=== PATIENT | female | born 1965 | race African-American/Black ===

== ENCOUNTER → 2017-06-28 | Outpatient (CLI) | payer OTHER | END | disposition home or self-care (01) | LOC: CFH 12:54 | PROVIDERS: ATTEND Family Medicine | DX: R06.02 Shortness of breath (principal); I10 Essential (primary) hypertension | CPT/HCPCS: 71046 ==

== ENCOUNTER → 2017-09-13 | Outpatient (CLI) | payer OTHER ==
[~2017-09-13] MED LIST: AMLO5TAB2 PO; LISI-170 PO
[2017-09-13 12:33] LABS: CREATININE 0.88 mg/dL (0.55-1.02)
== END | disposition home or self-care (01) ==
LOC: RAD 11:46
PROVIDERS: ATTEND Internal Medicine Cardiovascular Disease
DX: J84.10 Pulmonary fibrosis, unspecified (principal); I51.7 Cardiomegaly; J84.9 Interstitial pulmonary disease, unspecified; I70.0 Atherosclerosis of aorta
CPT/HCPCS: 36415; 71275; 82565

== ENCOUNTER 2018-04-13 00:41 | Emergency (ER) | payer OTHER ==
[~2018-04-13] VITALS: Ht 160 cm; Wt 64.5 kg
[~2018-04-13 00:41] MED LIST changes: -AMLO5TAB2 PO; +AMLO5TAB7 PO
[2018-04-13 01:48] LABS: BASOPHILS # (AUTO) 0.07 x10^3/uL (0-0.1); BASOPHILS % (AUTO) 1 % (0-1); EOSINOPHILS # (AUTO) 0.24 x10^3/uL (0-0.4); EOSINOPHILS % (AUTO) 4 % (1-7); LYMPHOCYTES # (AUTO) 2.85 x10^3/uL (1-3.4); LYMPHOCYTES % (AUTO) 52 % (22-44); MD NO; MEAN CORPUSCULAR HEMOGLOBIN 32.1 pg (27.0-34.8); MEAN CORPUSCULAR HGB CONC 33.9 g/dL (32.4-35.8); MEAN CORPUSCULAR VOLUME 94.6 fL (80-100); MEAN PLATELET VOLUME 8.9 fL (7.4-10.4); MONOCYTES # (AUTO) 0.55 x10^3/uL (0.2-0.8); MONOCYTES % (AUTO) 10 % (2-9); NEUTROPHILS # (AUTO) 1.82 x10^3/uL (1.8-6.8); NEUTROPHILS % (AUTO) 33 % (42-75); PLATELET COUNT 204 x10^3/uL (130-400); RED BLOOD COUNT 4.56 x10^6/uL (3.82-5.3); RED CELL DISTRIBUTION WIDTH 13.1 % (9.6-15.2)
[2018-04-13] MEDS ORDERED: ASPIRIN 81 MG TABLET CHEW ONE (01:50)
[2018-04-13] MEDS ORDERED: ACETAMINOPHEN 325 MG TABLET ONE (01:50)
[2018-04-13] MEDS ORDERED: ACETAMINOPHEN 325 MG TABLET PO ONE (02:00)
[2018-04-13] MEDS ORDERED: ASPIRIN 81 MG TABLET CHEW PO ONE (02:00)
[2018-04-13 02:01] VITALS: BP 129/72
[2018-04-13 02:04] LABS: ALBUMIN 3.9 g/dL (3.4-5.0); ANION GAP 11 mmol/L (5-15); CALCIUM 8.9 mg/dL (8.5-10.1); CHLORIDE 109 mmol/L (98-107); CREATININE 0.63 mg/dL (0.55-1.02)
[2018-04-13 02:08] LABS: TROPONIN I < 0.015 ng/mL (0.000-0.045)
== END 2018-04-13 02:46 | disposition home or self-care (01) ==
LOC: ED 02:38
DX: R07.2 Precordial pain (principal); I10 Essential (primary) hypertension; F17.210 Nicotine dependence, cigarettes, uncomplicated
CPT/HCPCS: 36415; 71045; 80048; 82040; 84484; 85025; 85379; 93005; 99285

== ENCOUNTER 2019-01-13 08:03 | Outpatient (CLI) | payer OTHER ==
[~2019-01-13 08:03] MED LIST changes: +AMLO-150 PO; -AMLO5TAB7 PO
[2019-01-23] MEDS ORDERED: ASPI-650 PO (15:11)
[2019-01-23] MEDS ORDERED: SIMV20TA3 PO (15:11)
[2019-01-23] MEDS ORDERED: OMEP-110 PO (17:18)
[2019-01-23] MEDS ORDERED: MECL12.52 PO (17:18)
[2019-01-23] MEDS ORDERED: ACET-76 PO (17:18)
== END 2019-01-13 23:59 | disposition home or self-care (01) ==
LOC: CVU 08:03
PROVIDERS: ATTEND Registered Nurse
DX: I65.23 Occlusion and stenosis of bilateral carotid arteries (principal)
CPT/HCPCS: 93880

== ENCOUNTER 2019-01-22 00:25 | Observation (INO) | payer OTHER ==
[~2019-01-22] VITALS: Ht 162.6 cm; Wt 68.1 kg
[2019-01-23 14:38] VITALS: BP 169/75
== END 2019-01-23 18:14 | disposition home or self-care (01) ==
LOC: ED 01:27 → EDIP 02:53 → INTOOBSV 02:53 → 5SO 03:53
PROVIDERS: ADMIT Internal Medicine; ATTEND Internal Medicine
DX: R07.89 Other chest pain (principal); I51.7 Cardiomegaly; R01.1 Cardiac murmur, unspecified; I10 Essential (primary) hypertension; R42 Dizziness and giddiness; F17.210 Nicotine dependence, cigarettes, uncomplicated; Z79.82 Long term (current) use of aspirin; Z79.899 Other long term (current) drug therapy
CPT/HCPCS: 36415; 71045; 78452; 80053; 80061; 81003; 83036; 83735; 84439; 84443; 84484; 85025; 93005; 93017; 93306; 96372; 96374; 96376; 99284; A9502; C9898; G0378; J1644; J2270; J2785; Q0163

== ENCOUNTER 2019-06-24 09:32 | Emergency (ER) | payer OTHER ==
[~2019-06-24] VITALS: Ht 160 cm; Wt 61.7 kg
[~2019-06-24 09:32] MED LIST changes: +ACET-76 PO; +ASPI-650 PO; +MECL12.52 PO; +OMEP-110 PO; +SIMV20TA3 PO
[2019-06-24 09:45] VITALS: BP 145/93
[2019-06-24 11:20] LABS: RAPID INFLUENZA A Negative (Negative); RAPID INFLUENZA B Negative (Negative)
== END 2019-06-24 11:34 ==
LOC: ED 11:00
DX: B34.9 Viral infection, unspecified (principal); I10 Essential (primary) hypertension; E78.5 Hyperlipidemia, unspecified; F17.200 Nicotine dependence, unspecified, uncomplicated
CPT/HCPCS: 71046; 87400; 93005; 99284

== ENCOUNTER 2019-09-15 07:12 | Emergency (ER) | payer MEDICAID, OTHER ==
[~2019-09-15] VITALS: Ht 157.5 cm; Wt 61.0 kg
[~2019-09-15 07:12] MED LIST changes: -MECL12.52 PO; +MECL12.581 PO; +SIMV20TA19 PO; -SIMV20TA3 PO
[2019-09-15 07:23] VITALS: BP 167/91
--- NOTE | 2019-09-15 07:40 | NUR ---
kevin-lexy is at the bedside for assessment
[2019-09-15] MEDS ORDERED: HYDROcodone/APAP 7.5-325MG/15ML UDC PO ONE (08:00)
[2019-09-15] MEDS ORDERED: DEXAMETHASONE 4 MG/ML, 1ML PO ONE (08:00)
[2019-09-15 08:02] LABS: BASOPHILS # (AUTO) 0.01 x10^3/uL (0-0.1); BASOPHILS % (AUTO) 0 % (0-1); EOSINOPHILS # (AUTO) 0.13 x10^3/uL (0-0.4); EOSINOPHILS % (AUTO) 1 % (1-7); LYMPHOCYTES # (AUTO) 1.05 x10^3/uL (1-3.4); LYMPHOCYTES % (AUTO) 10 % (22-44); MD NO; MEAN CORPUSCULAR HEMOGLOBIN 32.6 pg (27.0-34.8); MEAN CORPUSCULAR HGB CONC 33.4 g/dL (32.4-35.8); MEAN CORPUSCULAR VOLUME 97.6 fL (80-100); MEAN PLATELET VOLUME 8.7 fL (7.4-10.4); MONOCYTES # (AUTO) 0.67 x10^3/uL (0.2-0.8); MONOCYTES % (AUTO) 7 % (2-9); NEUTROPHILS # (AUTO) 8.43 x10^3/uL (1.8-6.8); NEUTROPHILS % (AUTO) 82 % (42-75); PLATELET COUNT 226 x10^3/uL (130-400); RED BLOOD COUNT 4.15 x10^6/uL (3.82-5.3); RED CELL DISTRIBUTION WIDTH 15.6 % (9.6-15.2)
[2019-09-15] MEDS ORDERED: DEXAMETHASONE 4 MG/ML, 5ML ONE (08:02)
--- NOTE | 2019-09-15 08:13 | NUR ---
pt resting on an e.r. gurney watching television. c/o sore throat medicated per aug. we are awaiting the results of diagnostics prior to any further dispo. i will continue to monitor and treat this pt as ordered, as well as prn.
[2019-09-15 09:03] LABS: ALBUMIN 3.7 g/dL (3.4-5.0); ANION GAP 9 mmol/L (5-15); CALCIUM 9.5 mg/dL (8.5-10.1); CHLORIDE 106 mmol/L (98-107); CREATININE 0.68 mg/dL (0.55-1.02)
--- NOTE | 2019-09-15 10:08 | NUR ---
PT TO CT W TECH
[2019-09-15] MEDS ORDERED: OMNIPAQUE 350 MG/ML, 100ML BOTTLE ONE (10:25)
[2019-09-15] MEDS ORDERED: KETOROLAC 30 MG/1 ML IVPush ONE (10:30)
[2019-09-15] MEDS ORDERED: KETOROLAC 30 MG/1 ML ONE (10:30)
== END 2019-09-15 11:38 | disposition home or self-care (01) ==
LOC: ED 07:40
DX: J02.8 Acute pharyngitis due to other specified organisms (principal); B97.89 Other viral agents as the cause of diseases classified elsewhere; I10 Essential (primary) hypertension; M54.2 Cervicalgia; E78.5 Hyperlipidemia, unspecified
CPT/HCPCS: 36415; 70491; 80048; 82040; 85025; 87081; 87147; 87880; 96374; 99285; J1100; J1885; Q9967

== ENCOUNTER 2020-01-20 13:12 | Emergency (ER) | payer BC, MEDICAID ==
[~2020-01-20] VITALS: Ht 160 cm; Wt 58.2 kg
--- NOTE | 2020-01-20 15:18 | NUR ---
INSERT MOLDING OPERATOR: PT TO ROOM FROM MELI COOPER. PT TO ROOM TO ATTEMPT TO PROVIDE URINE SPECIMAN.
[2020-01-20] MEDS ORDERED: SODIUM CHLORIDE FLUSH 10ML SYR IVF ONE (15:30)
[2020-01-20] MEDS ORDERED: SODIUM CHLORIDE 0.9% 1,000ML IVBOLUS ONE (16:00)
[2020-01-20 16:03] LABS: BASOPHILS # (AUTO) 0.03 x10^3/uL (0-0.1); BASOPHILS % (AUTO) 1 % (0-1); EOSINOPHILS # (AUTO) 0.08 x10^3/uL (0-0.4); EOSINOPHILS % (AUTO) 2 % (1-7); LYMPHOCYTES # (AUTO) 1.69 x10^3/uL (1-3.4); LYMPHOCYTES % (AUTO) 41 % (22-44); MD NO; MEAN CORPUSCULAR HGB CONC 33.8 g/dL (32.4-35.8); MEAN CORPUSCULAR VOLUME 97.8 fL (80-100); MEAN PLATELET VOLUME 9.1 fL (7.4-10.4); MONOCYTES # (AUTO) 0.35 x10^3/uL (0.2-0.8); MONOCYTES % (AUTO) 9 % (2-9); NEUTROPHILS # (AUTO) 1.93 x10^3/uL (1.8-6.8); NEUTROPHILS % (AUTO) 47 % (42-75); PLATELET COUNT 205 x10^3/uL (130-400); RED BLOOD COUNT 3.84 x10^6/uL (3.82-5.3); RED CELL DISTRIBUTION WIDTH 12.7 % (9.6-15.2)
[2020-01-20 16:14] LABS: ALBUMIN 3.7 g/dL (3.4-5.0); ANION GAP 7 mmol/L (5-15); CALCIUM 8.7 mg/dL (8.5-10.1); CHLORIDE 111 mmol/L (98-107)
[2020-01-20 16:18] LABS: ALANINE AMINOTRANSFERASE 22 U/L (12-78); ALKALINE PHOSPHATASE 69 U/L (45-117); BILIRUBIN,TOTAL 0.3 mg/dL (0.2-1.0); CREATININE 0.56 mg/dL (0.55-1.02); TOTAL PROTEIN 7.9 g/dL (6.4-8.2)
--- NOTE | 2020-01-20 16:26 | NUR ---
PIV EST LABS DRAWN. C/O SOME LOWER ABD CRAMPING, NO BM HERE. DENIES DIZZINESS/WEAKNESS.
--- NOTE | 2020-01-20 16:50 | NUR ---
guiac pos for amira blood bolus infusing plan ct placed on 2 lnc for desat 89% on ra pt does say she feels sob. has fam hx sarcoidosis. as
--- NOTE | 2020-01-20 17:23 | NUR ---
REPORT TO BILLIE Downing RN.
--- NOTE | 2020-01-20 17:23 | NUR ---
REPORT OF PT FROM DANIELLE BOLANOS AND ASSUMING CARE OF PT AT THIS TIME.
[2020-01-20] MEDS ORDERED: OMNIPAQUE 350 MG/ML, 100ML BOTTLE ONE (18:18)
--- NOTE | 2020-01-20 18:26 | NUR ---
PT BACK FROM CT VIA [facility] AT THIS TIME.
[2020-01-20] MEDS ORDERED: POTASSIUM CHLORIDE 20 MEQ TAB.ER.PRT PO ONE (19:00)
--- NOTE | 2020-01-20 19:48 | NUR ---
FIRST CONTACT. DANIELLE PENA IS DISCHARGING THE PT. FOR THE PRIMARY RN BILLIE. PT. IS A & O X 4 WITH A GCS OF 15. PT. STATES SHE FEEL BETTER. PT. WAS GIVEN DISCHARGE INSTRUCTIONS WITH UNDERSTANDING VERBALIZED ALONG WITH WILLINGNESS TO COMPLY. PT. WAS AMBULATORY WITH A STEADY GAIT TO THE DISCHARGE DESK.
[2020-01-20 19:50] VITALS: BP 159/95
== END 2020-01-20 19:53 | disposition home or self-care (01) ==
LOC: ED 17:00
DX: K57.30 Diverticulosis of large intestine without perforation or abscess without bleeding (principal); K92.1 Melena; I10 Essential (primary) hypertension; F17.200 Nicotine dependence, unspecified, uncomplicated; E78.5 Hyperlipidemia, unspecified
CPT/HCPCS: 36415; 74177; 80053; 83690; 85025; 86850; 86900; 96360; 99285; J7030; Q9967

== ENCOUNTER 2020-12-29 19:17 | Emergency (ER) | payer BC ==
[~2020-12-29] VITALS: Ht 157.5 cm; Wt 56.0 kg
[~2020-12-29 19:17] MED LIST changes: -ASPI-650 PO; +ASPI325T20 PO; -MECL12.581 PO; +MECL12.590 PO
[2020-12-29 19:56] VITALS: BP 157/82
[2020-12-29] MEDS ORDERED: HYDROcodone/APAP 5/325 TABLET ONE (20:26)
[2020-12-29] MEDS ORDERED: HYDROcodone/APAP 5/325 TABLET PO ONE (20:30)
== END 2020-12-29 21:48 | disposition home or self-care (01) ==
LOC: ED 20:33
DX: S52.591A Other fractures of lower end of right radius, initial encounter for closed fracture (principal); E78.5 Hyperlipidemia, unspecified; I10 Essential (primary) hypertension; F17.210 Nicotine dependence, cigarettes, uncomplicated; W01.0XXA Fall on same level from slipping, tripping and stumbling without subsequent striking against object, initial encounter; Y93.89 Activity, other specified; Y92.89 Other specified places as the place of occurrence of the external cause; Y99.8 Other external cause status
CPT/HCPCS: 29125; 99283

== ENCOUNTER 2021-01-02 09:50 | Emergency (ER) | payer BC ==
[~2021-01-02] VITALS: Ht 160 cm; Wt 56.1 kg
[2021-01-02] MEDS ORDERED: ONDANSETRON 2MG/ML, 2ML ONE (10:37)
[2021-01-02] MEDS ORDERED: MORPHINE SULFATE 4 MG/ML, 1ML ONE ×2 (10:37→11:47)
[2021-01-02] MEDS: MORPHINE SULFATE 4 MG/ML, 1ML IVPush PRN ×2 (10:41→11:50)
[2021-01-02 10:44] LABS: BASOPHILS % (AUTO) 2 % (0-1); EOSINOPHILS % (AUTO) 2 % (1-7); LYMPHOCYTES % (AUTO) 32 % (22-44); MEAN CORPUSCULAR HEMOGLOBIN 34.1 pg (27.0-34.8); MEAN CORPUSCULAR HGB CONC 34.9 g/dL (32.4-35.8); MEAN PLATELET VOLUME 9.2 fL (7.4-10.4); MONOCYTES % (AUTO) 8 % (2-9); NEUTROPHILS % (AUTO) 57 % (42-75); PLATELET COUNT 226 x10^3/uL (130-400); RED BLOOD COUNT 4.23 x10^6/uL (3.82-5.3); RED CELL DISTRIBUTION WIDTH 13.7 % (9.6-15.2)
--- NOTE | 2021-01-02 10:46 | NUR ---
PT PLACED ON MONITORS, IV STARTED AND LABS DRAWN. PT MEDICATED FOR PAIN PER ORDERS. AWAITNG XRAY. CONT TO MONITOR.
[2021-01-02 10:47] LABS: ALANINE AMINOTRANSFERASE 27 U/L (12-78); ALBUMIN 3.8 g/dL (3.4-5.0); ANION GAP 7 mmol/L (5-15); CALCIUM 9.4 mg/dL (8.5-10.1); CHLORIDE 106 mmol/L (98-107); CREATININE 0.57 mg/dL (0.55-1.02)
[2021-01-02 10:51] LABS: ALKALINE PHOSPHATASE 85 U/L (45-117); BILIRUBIN,TOTAL 0.4 mg/dL (0.2-1.0); TOTAL PROTEIN 8.9 g/dL (6.4-8.2); TROPONIN I < 0.015 ng/mL (0.000-0.045)
[2021-01-02] MEDS ORDERED: ONDANSETRON 2MG/ML, 2ML IVPush ONE (11:00)
--- NOTE | 2021-01-02 11:47 | NUR ---
TASK RN: PLACED ON 2L NC FOR ROOM AIR POX OF 88% (GOOD PLETH WHICH WAS WATCHED OVER 20 MINUTES PRIOR TO ADMIN)
--- NOTE | 2021-01-02 12:00 | NUR ---
PT REMEDICATED FOR PAIN. PT AWARE OF POC, AWAITING CTA. PT REMAINS ON MONITORS, VSS, FAMILY AT BEDSIDE. ON MONITORS. CONT TO MONITOR.
--- NOTE | 2021-01-02 12:54 | NUR ---
PT STATES "i'M READY TO GO HOME, I'LL JUST COME BACK TOMORROW, I'LL MAKE AN APPOINTMENT." PT EDUCATED, UNABLE TO MAKE APPOINTMENT IN ER. PT ASKING FOR NEW SCRIPT. PT EDUCATED SHE WOULD BE LEAVING AMA, NO NEW SCRIPT AVAILABLE. PT RE-EDUCATED, STILL NEEDS CTA FOR MORE DIAGNOSTIC INFO. PT VERBALIZED UNDERSTANDING, STATES WILL STAY FOR CT. PT NOW TO CT.
[2021-01-02] MEDS ORDERED: OMNIPAQUE 350 MG/ML, 75ML BOTTLE ONE (13:04)
[2021-01-02] MEDS ORDERED: KETOROLAC 30 MG/1 ML ONE (13:54)
[2021-01-02] MEDS ORDERED: KETOROLAC 30 MG/1 ML IVPush ONE (14:00)
--- NOTE | 2021-01-02 14:07 | NUR ---
PT MEDICATED WITH TORADOL IV FOR PAIN PER ORDERS. ERMD AT BEDSIDE FOR REASSESSMENT. PT TO BE D/C. PT AWARE OF POC, VERBALIZED UNDERSTANDING. AWAITING D/C PAPERWORK. CONT TO MONITOR.
[2021-01-02 14:25] VITALS: BP 144/66
== END 2021-01-02 14:27 | disposition home or self-care (01) ==
LOC: ED 10:18
DX: R07.89 Other chest pain (principal); I10 Essential (primary) hypertension; E78.5 Hyperlipidemia, unspecified
CPT/HCPCS: 36415; 71046; 71275; 80053; 84484; 85025; 85379; 93005; 96374; 96375; 96376; 99285; J1885; J2270; J2405; Q9967

== ENCOUNTER 2021-01-12 20:06 | Emergency (ER) | payer BC ==
[~2021-01-12] VITALS: Ht 160 cm; Wt 54.8 kg
--- NOTE | 2021-01-12 20:20 | NUR ---
INITIAL PT CONTACT. PT PRESENTS TO ED C/O BILATERAL ARM PAIN, NECK PAIN AND NUMBNESS, RIGHT LEG PAIN AND NUMBNESS TO THE LEFT ARM. SYMPTOMS BEGAN APPROX 4 HOURS AGO TODAY, PT DENIES ANY RECENT TRAUMA OR INJURY. PT SITTING UPRIGHT ON GURNEY, NADN, VSS. CONTINUOUS MONITORING IN PLACE. CALL LIGHT AND BELONGINGS WITHIN REACH. AWAITING ERP.
[2021-01-12 20:56] VITALS: BP 156/102
--- NOTE | 2021-01-12 21:03 | NUR ---
PT TO CT
[2021-01-12] MEDS ORDERED: ONDANSETRON ODT 4 MG PO ONE (21:30)
[2021-01-12] MEDS ORDERED: ONDANSETRON ODT 4 MG ONE (21:42)
== END 2021-01-12 22:06 | disposition home or self-care (01) ==
LOC: ED 21:19
DX: S16.1XXA Strain of muscle, fascia and tendon at neck level, initial encounter (principal); M47.22 Other spondylosis with radiculopathy, cervical region; E78.5 Hyperlipidemia, unspecified; I10 Essential (primary) hypertension; F17.210 Nicotine dependence, cigarettes, uncomplicated; W18.30XA Fall on same level, unspecified, initial encounter; Y93.89 Activity, other specified; Y92.89 Other specified places as the place of occurrence of the external cause; Y99.8 Other external cause status
CPT/HCPCS: 72125; 99284; Q0162

== ENCOUNTER 2021-01-22 22:02 | Emergency (ER) | payer BC ==
[~2021-01-22] VITALS: Ht 157.5 cm; Wt 57.2 kg
--- NOTE | 2021-01-22 22:11 | NUR ---
EKG NOT COMPLETED IN TRIAGE DUE TO PATIENT VOMITING.
[2021-01-22] MEDS ORDERED: MORPHINE SULFATE 4 MG/ML, 1ML IVPush PRN (22:30)
[2021-01-22] MEDS ORDERED: SODIUM CHLORIDE 0.9% 1,000ML IVBOLUS ONE (22:30)
[2021-01-22] MEDS ORDERED: SODIUM CHLORIDE FLUSH 10ML SYR IVF ONE (22:30)
[2021-01-22] MEDS ORDERED: ONDANSETRON 2MG/ML, 2ML IVPush ONE (22:30)
[2021-01-22 22:35] LABS: MEAN CORPUSCULAR HEMOGLOBIN 34.1 pg (27.0-34.8); MEAN CORPUSCULAR HGB CONC 34.8 g/dL (32.4-35.8); PLATELET COUNT 233 x10^3/uL (130-400); RED BLOOD COUNT 4.17 x10^6/uL (3.82-5.3)
[2021-01-22 22:44] LABS: ALBUMIN 3.2 g/dL (3.4-5.0); ANION GAP 9 mmol/L (5-15); CALCIUM 8.3 mg/dL (8.5-10.1); CHLORIDE 109 mmol/L (98-107)
[2021-01-22 22:51] LABS: ALANINE AMINOTRANSFERASE 25 U/L (12-78); ALKALINE PHOSPHATASE 89 U/L (45-117); BILIRUBIN,TOTAL 0.3 mg/dL (0.2-1.0); TROPONIN I < 0.015 ng/mL (0.000-0.045)
[2021-01-22 23:22] LABS: LYMPH#(MANUAL) 2.48 x10^3/uL (1-3.4); LYMPHS% (MANUAL) 55 % (22-44); MONOS#(MANUAL) 0.14 x10^3/uL (0.3-2.7); MONOS% (MANUAL) 3 % (2-9); SEG#(MANUAL) 1.89 x10^3/uL (1.8-6.8); SEGS% (MANUAL) 42 % (42-75)
[2021-01-22 23:23] LABS: <PLATELET ESTIMATE> ADEQUATE; <PLT MORPHOLOGY> NORMAL PLT MORPH; <RBC MORPHOLOGY> NORMAL
[2021-01-23] MEDS ORDERED: MAALOX/HYOSCYAMINE/LIDOCAINE 45 ML BTL PO ONE (00:30)
--- NOTE | 2021-01-23 00:30 | NUR ---
PT C/O OF NAUSEA, VOMITTING, DIARRHEA, AND EPIGASRTIC PAIN SINCE TODAY. DENIES PAINFUL [id number], CP, SOB. ATTACHED TO MONITORS, VSS, KATI, LORAINE AT BEDSIDE FOR EVAL. BED IN LOW POSITON, RAILS ENGAGED, CALL LIGHT ON LAP PT STATES HX OF PANCREATITIS.
[2021-01-23] MEDS ORDERED: MAALOX/HYOSCYAMINE/LIDOCAINE 45 ML BTL ONE (00:35)
[2021-01-23] MEDS ORDERED: OXYcodone/APAP 5/325MG TABLET ONE (00:35)
[2021-01-23] MEDS ORDERED: ONDANSETRON ODT 4 MG ONE (00:35)
--- NOTE | 2021-01-23 00:55 | NUR ---
Break RN: patient's nausea improved. Medicated patient for pain per mar.
[2021-01-23 01:00] VITALS: BP 146/85
[2021-01-23] MEDS ORDERED: ONDANSETRON ODT 4 MG PO ONE (01:00)
[2021-01-23] MEDS ORDERED: OXYcodone/APAP 5/325MG TABLET PO ONE (01:00)
--- NOTE | 2021-01-23 01:05 | NUR ---
Break RN: Discharge instructions given. All questions and concerns addressed. Patient ambulatory with a steady gait. Belongings with patient.
== END 2021-01-23 01:31 | disposition home or self-care (01) ==
LOC: ED 23:00
DX: K29.20 Alcoholic gastritis without bleeding (principal); F10.120 Alcohol abuse with intoxication, uncomplicated; R10.13 Epigastric pain; R11.2 Nausea with vomiting, unspecified; I10 Essential (primary) hypertension; Y90.0 Blood alcohol level of less than 20 mg/100 ml
CPT/HCPCS: 36415; 80053; 80320; 83690; 84484; 85025; 93005; 99284; Q0162; G0480